=== PATIENT | male | born 1950 | race Hispanic/Latino ===

== ENCOUNTER 2022-05-12 07:27 | Day surgery (SDC) | payer MEDICARE ==
[2022-05-12] MEDS ORDERED: ASPIRIN EC 325 MG TAB PO NR (08:19)
[2022-05-12 08:50] LABS: BUN/Creatinine Ratio 23; Blood Urea Nitrogen 21 mg/dL (9-20); Calcium 9.5 mg/dL (8.4-10.2); Hemolysis Index 4
[2022-05-12 08:52] LABS: Eosinophils # (Auto) 0.1 K/mm3 (0.0-0.4); Eosinophils % (Auto) 3.2 % (0.0-4.3); Hematocrit 43.6 % (35.5-45.6); Hemoglobin 15.3 gm/dl (11.8-15.2); Lymphocytes # (Auto) 0.6 K/mm3 (1.2-5.4); Lymphocytes % (Auto) 15.1 % (13.4-35.0); Mean Corpuscular HGB Conc 35 % (32-34); Mean Corpuscular Volume 95 fl (84-94); Monocytes # (Auto) 0.4 K/mm3 (0.0-0.8); Monocytes % (Auto) 9.8 % (0.0-7.3); Platelet Count 140 K/mm3 (140-440); Red Blood Count 4.58 M/mm3 (3.65-5.03); Red Cell Distribution Width 13.5 % (13.2-15.2)
[2022-05-12 08:53] LABS: Basophils % (Auto) 0.8 % (0.0-1.8)
[2022-05-12 09:02] LABS: INR 0.91 (0.87-1.13)
[2022-05-12 09:03] LABS: Partial Thromboplastin Time 31.1 Sec. (24.2-36.6)
[2022-05-12] MEDS: SODIUM CHLORIDE 0.9% 500 ML 500 ML IV SCH ×2 (09:12→10:42)
--- NOTE | 2022-05-12 09:58 | Electrocardiograph Report ---
[facility] Test Date: 2022-05-12 Test Time: 07:55:29 Pat Name: JOE JOHNSON Department: Room: Gender: M [employer] Developer: ANA : 1950 Requested By: KATH BLANTON Order Number: [id number] Reading MD: Kath Blanton Measurements Intervals [place] Rate: 59 P: 48 NC: 175 QRS: 18 QRSD: 104 T: 25 QT: 402 QTc: 400 Interpretive Statements Sinus rhythm No previous ECG available for comparison Electronically Signed On 05-12-2022 9:58:12 EDT by Kath Blanton
[2022-05-12] MEDS ORDERED: HEPARIN/NS 5000 UNIT/500ML 1,000 ML IR ONE (10:31)
[2022-05-12] MEDS: fentaNYL 100 MCG/2 ML INJ ONE ×2 (10:40→11:17)
[2022-05-12] MEDS: MIDAZOLAM 2 MG/2 ML INJ ONE ×2 (10:41→11:17)
[2022-05-12] MEDS: LIDOCAINE (1%) 10 MG/1 ML VIAL 20 ML MDV ONE ×2 (10:41→11:19)
[2022-05-12] MEDS: HEPARIN 10,000 UNITS/10 ML VIAL ONE ×2 (10:41→11:21)
[2022-05-12] MEDS: NITROGLYCERIN SYRINGE 3 ML ONE ×2 (10:41→11:21)
[2022-05-12] MEDS: VERAPAMIL 5 MG/2 ML INJ ONE ×2 (10:41→11:21)
--- NOTE | 2022-05-12 11:38 | Short Stay Summary ---
Short Stay Documentation Date of service: 05/12/22 - History H&P: obtained from office - Allergies and Medications Current Medications: Allergies Androgenic Anabolic Steroid Allergy (Verified 05/12/22 08:18) Increase eye pressure Home Medications Medication Instructions Recorded Confirmed Last Taken Type Atorvastatin [Lipitor Tab] 40 mg PO QHS 05/12/22 05/12/22 05/11/22 History Latanoprost 0.005% 1 drop OU QHS 05/12/22 05/12/22 05/11/22 History Metoprolol [Lopressor] 25 mg PO DAILY 05/12/22 05/12/22 05/11/22 History Nitroglycerin [Nitrostat] 0.4 mg SL Q5M PRN 05/12/22 05/12/22 Unknown History Timolol 0.5% [Timoptic] 1 drops OP BID 05/12/22 05/12/22 05/11/22 History Active Medications Sodium Chloride (Nacl 0.9% 500 Ml) 500 mls @ 50 mls/hr IV DIRECT TAHIR Stop: 05/12/22 18:59 Last Admin: 05/12/22 10:42 Dose: 50 mls/hr - Brief post op/procedure progress note Date of procedure: 05/12/22 Pre-op diagnosis: Chest pain Post-op diagnosis: other (Normal coronaries with slight atherosclerosis) Anesthesia: local Estimated blood loss: minimal - Hospital course Hospital course: Patient presents today for cardiac cath due to recurrent chest pain. Patient tolerated procedure well without complications. Patient found to have normal coronaries with mild luminal irregularities no indication for PCI see cath report for full details. Patient to be discharged home and follow-up as an outpatient. Plan of care discussed with patient who verbalized understanding and acknowledgment. - Disposition Condition at discharge: Good Disposition: 01 HOME / SELF CARE / HOMELESS - Discharge Diagnoses (1) Hyperlipidemia Status: Acute (2) Precordial chest pain Status: Acute (3) Leg varices Status: Acute Short Stay Discharge Plan Activity: advance as tolerated Diet: low fat, low cholesterol, low salt Wound: keep clean and dry, per your surgeon's advice Follow up with: RAMANDEEP ARMAS MD [Staff Physician] - 06/02/22 11:00 am (Follow-up on meds in our [place] location. Phone #[phone])
--- NOTE | 2022-05-12 11:40 | Cardiac Catherization Report ---
DATE OF SERVICE: 05/12/2022 LEFT HEART CATHETERIZATION REFERRING PHYSICIAN: Dr. Johnathan Dominguez. CLINICAL INFORMATION: This is a 72-year-old male with hyperlipidemia, hypertension, has recurrent shortness of breath despite medical management and is here for ischemic evaluation. Procedure was done with moderate sedation started at 11:15, finished 11:30 with 15 minutes of moderate sedation. DESCRIPTION OF PROCEDURE: Procedure was done via the right radial artery, sterile technique and local anesthesia. A 6-Emirati radial sheath inserted. Left system engaged with a JL3.5 catheter. Left main is large and patent. LAD has mild calcification in the mid portion, but vessel is largely patent. Diagonal 1 is a medium caliber vessel, patent. Circumflex is a large caliber vessel, is patent. OM1, OM2 medium caliber vessels, patent. RCA is a large, dominant vessel, it is patent. PDA, PLV are small to medium caliber vessel, patent. LV gram done in [place]ARO[place] and [place] view shows normal LV function, EF 55%-60%, LVEDP at 9 mmHg, LV is 150, aortic is 150/70. No gradient across the aortic valve on pullback. The 5-Emirati catheters were all taken over guidewire. A 6-Emirati radial sheath was discontinued. Radial band applied. No hematoma, no bleeding. SUMMARY: 1. Left main patent, LAD mid mild calcification with largely patent vessels, mild luminal irregularities in the mid section. Diagonal 1 medium caliber was patent. Circumflex, large caliber vessel, patent. OM1, OM2 medium caliber vessels, patent. RCA is a large caliber vessel, patent. Normal LV ventricular function. 2. Continue risk factor modification. Discussed with the patient and the patient's family in detail. TID: [id number] RECEIPT: [id number] GARY/TOAN
[2022-05-12 15:26] VITALS: BP 132/74
== END 2022-05-12 14:45 | disposition home or self-care (01) ==
LOC: CATHLABREC 07:27
PROVIDERS: ATTEND Internal Medicine
DX: R06.02 Shortness of breath (principal); R07.2 Precordial pain; E78.5 Hyperlipidemia, unspecified; H40.9 Unspecified glaucoma; I10 Essential (primary) hypertension; M19.90 Unspecified osteoarthritis, unspecified site; Z79.899 Other long term (current) drug therapy; Z87.442 Personal history of urinary calculi; Z87.440 Personal history of urinary (tract) infections; Z98.890 Other specified postprocedural states
CPT/HCPCS: 36415; 80048; 85025; 85610; 85730; 93005; 93458; 99156; C1894; J1644; J1815; J2250; J3010; J7040; Q9967